=== PATIENT | female | born 1990 | race Hispanic/Latino ===

== ENCOUNTER 2018-08-03 13:08 | Emergency (ER) | payer BC, OTHER ==
[2018-08-03 13:11] VITALS: BMI 23.1
[2018-08-03 13:16] VITALS: BP 126/84; PULSE 80; RESP 18; TEMP 98.1; O2SAT 99
--- NOTE | 2018-08-03 13:41 | ED PDOC ---
Arrival/HPI - General Chief Complaint: Psychiatric Evaluation Time Seen by Provider: 08/03/18 13:17 Historian: Patient - History of Present Illness Narrative History of Present Illness (Text): 08/03/18 13:24 27yo female with pmhx of depression, anxiety who was [facility] for psychiatric evaluation. 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 the colleague states patient told another teacher that she will hurt herself and told another person that she will drive off a [employer]. Patient however states she never want to hurt herself. States she can't even stand the look of someone taking her blood. states she discussed bullying with her students 3days ago and told them that she was also bullied as a student, but that was all. She denies drug use, hallucination, HI, any other complaint. Past Medical History - Provider Review Nursing Documentation Reviewed: Yes - Infectious Disease Hx of Infectious Diseases: None - Tetanus Immunization Tetanus Immunization: Unknown - Psychiatric Hx Depression: No Hx Emotional Abuse: No Hx Physical Abuse: No Hx Substance Use: No - Past Surgical History Past Surgical History: No Previous - Suicidal Assessment Feels Threatened In Home Enviroment: No Family/Social History - Physician Review Nursing Documentation Reviewed: Yes Family/Social History: Unknown Family HX Hx Alcohol Use: No Hx Substance Use: No Hx Substance Use Treatment: No Allergies/Home Meds Allergies/Adverse Reactions: Allergies Penicillins Allergy (Verified 08/03/18 14:39) ANAPHYLAXIS Home Medications: Home Meds Medication Instructions Recorded Confirmed Control 10/30/12 10/02/13 Review of Systems - Physician Review All systems were reviewed & negative as marked: Yes - Review of Systems Constitutional: Normal Eyes: Normal ENT: Normal Respiratory: Normal Cardiovascular: Normal Gastrointestinal: Normal Genitourinary Female: Normal Musculoskeletal: Normal Skin: Normal Neurological: Normal Endocrine: Normal Hemo/Lymphatic: Normal Psychiatric: Other (Psychiatiric evaluation) Physical Exam Vital Signs Reviewed: Yes Vital Signs Temp Pulse Resp BP Pulse Ox 08/03/18 13:11 98.1 F 80 18 126/84 99 Temperature: Afebrile Blood Pressure: Normal Pulse: Regular Respiratory Rate: Normal Appearance: Positive for: Well-Appearing, Non-Toxic, Comfortable Pain Distress: None Mental Status: Positive for: Alert and Oriented X 3 - Systems Exam Head: Present: Atraumatic, Normocephalic Pupils: Present: PERRL Extroacular Muscles: Present: EOMI Conjunctiva: Present: Normal Mouth: Present: Moist Mucous Membranes Neck: Present: Normal Range of Motion Respiratory/Chest: Present: Clear to Auscultation, Good Air Exchange. No: Respiratory Distress, Accessory Muscle Use Cardiovascular: Present: Regular Rate and Rhythm, Normal S1, S2. No: Murmurs Abdomen: No: Tenderness, Distention, Peritoneal Signs Back: Present: Normal Inspection Upper Extremity: Present: Normal Inspection. No: Cyanosis, Edema Lower Extremity: Present: Normal Inspection. No: Edema Neurological: Present: GCS=15, CN II-XII Intact, Speech Normal Skin: Present: Warm, Dry, Normal Color. No: Rashes Psychiatric: Present: Alert, Oriented x 3, Normal Insight, Normal Concentration Medical Decision Making ED Course and Treatment: 08/03/18 14:47 27yo female referred to ED by her school for psychiatric evaluation. Pt was referred for allegedly telling another teacher that she wants to hurt herself. Patient however denied SI in ED. Case was ROSLYN Best the PES screener who states that we should hold off doing blood work and she will see patient first. she saw patient in ED, discussed case with Dr. Alcantara and pt was discharged home. Patient appear stable to be DC home. Disposition/Present on Arrival - Present on Arrival Any Indicators Present on Arrival: No History of DVT/PE: No History of Uncontrolled Diabetes: No Urinary Catheter: No History of Decub. Ulcer: No History Surgical Site Infection Following: None - Disposition Have Diagnosis and Disposition been Completed?: Yes Diagnosis: Stress Disposition: HOME/ ROUTINE Disposition Time: 14:45 Patient Plan: Discharge Patient Problems: Current Active Problems Problem Status Onset Stress Acute Condition: STABLE Discharge Instructions (ExitCare): Stress Additional Instructions: Follow up with your Doctor Return to ED for any new or worsening symptoms Referrals: at [facility] [place] [Outside] - Follow up with primary Forms: [facility] (French)
== END 2018-08-03 14:45 | disposition home or self-care (01) ==
LOC: ED 13:08
DX: F43.9 Reaction to severe stress, unspecified (principal)